=== PATIENT | female | born 1980 | race Caucasian/White ===

== ENCOUNTER → 2024-03-27 | Outpatient (CLI) | payer OTHER | END | disposition home or self-care (01) | LOC: LAB SHORT 09:30 → LAB 09:30 | DX: L08.0 Pyoderma (principal) | CPT/HCPCS: 87070; 87077; 87205 ==

== ENCOUNTER → 2024-04-10 | Outpatient (CLI) | payer OTHER | END | disposition home or self-care (01) | LOC: LAB 12:14 → LAB SHORT 12:14 | DX: L08.0 Pyoderma (principal); L98.9 Disorder of the skin and subcutaneous tissue, unspecified | CPT/HCPCS: 87070; 87071; 87075; 87077; 87186; 87205 ==

== ENCOUNTER → 2024-08-14 | Outpatient (CLI) | payer OTHER | LOC: LAB SHORT 16:09 | DX: L08.0 Pyoderma (principal) | CPT/HCPCS: 87070; 87205 ==

== ENCOUNTER → 2024-10-03 | Outpatient (CLI) | payer OTHER | LOC: LAB SHORT 16:00 → LAB 16:00 | DX: L98.9 Disorder of the skin and subcutaneous tissue, unspecified (principal); L73.2 Hidradenitis suppurativa | CPT/HCPCS: 87071; 87075; 87077; 87102; 87116; 87186; 87205 ==